=== PATIENT | male | born 1965 | race Two or more races ===

== ENCOUNTER 2024-10-11 18:20 | Emergency (ER) | payer BC, SELFPAY ==
[2024-10-11 18:35] VITALS: PULSE 68; RESP 16; O2SAT 98
[2024-10-11 19:25] VITALS: BP 145/66; PULSE 62; RESP 18; TEMP 36.7; O2SAT 99; BMI 27.4
--- NOTE | 2024-10-11 19:28 | EKG_ITS ---
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
--- NOTE | 2024-10-11 19:28 | XR_ITS ---
Examination: PA chest single view TECHNIQUE: Upright PA chest single view Examination time: October 11, 2024 1835 hours Comparison October 02, 2022 INDICATIONS: Chest pain today FINDINGS: Normal heart size. No pneumonia or pulmonary edema. Bilateral old rib fractures IMPRESSION: No pneumonia or pulmonary edema
--- NOTE | 2024-10-11 19:30 | PD.EDRME ---
Rapid Medical Screening Exam RME Arrival date/time: 10/11/24 18:20 Chief Complaint: Abdominal Pain Time Seen by Provider: 10/11/24 19:04 Vital signs: Vital Signs Temperature 98.1 F 10/11/24 19:25 Pulse Rate 62 10/11/24 19:25 Respiratory Rate 18 10/11/24 19:25 Blood Pressure 145/66 H 10/11/24 19:25 Pulse Oximetry (%) 99 10/11/24 19:25 Oxygen Delivery Method Room Air 10/11/24 19:25 E Narrative: Nausea and vomiting that started today. Denies abdominal pain. Reports mild chest pain. Patient is on dialysis.
[2024-10-11] MEDS: ONDANSETRON ODT 4 MG TABRAP PO (19:48)
[2024-10-11 19:54] LABS: Basophils # (Auto) 0.1 Thou/mm3 (0.0-0.2); Basophils % (Auto) 1 % (0-2.5); Eosinophils % (Auto) 1 % (0-10); Hemoglobin 11.4 g/dL (13.5-16.0); Immature Granulocytes % (Auto) 0 % (0-0); Immature Granulocytes Auto 0.02 Thou/mm3 (0.00-0.00); Lymphocytes # (Auto) 0.9 Thou/mm3 (1.0-4.8); Lymphocytes % (Auto) 14 % (10-50); Mean Corpuscular HGB Conc 34.5 g/dl (31.0-37.0); Mean Corpuscular Hemoglobin 33.2 pg (25.0-35.0); Mean Corpuscular Volume 96 fL (80-100); Monocytes # (Auto) 0.3 Thou/mm3 (0.0-0.8); Monocytes % (Auto) 5 % (0-12); Neutrophils # (Auto) 5.3 Thou/mm3 (1.8-7.7); Neutrophils % (Auto) 80 % (37-80); Nucleated Red Blood Cell % 0 /100 WBC (0); Platelet Count 155 Thou/mm3 (140-440); RDW Standard Deviation 46.5 fL (35.1-43.9); Red Blood Count 3.43 Miln/mm3 (4.50-5.90); White Blood Count 6.7 Thou/mm3 (3.8-10.6)
[2024-10-11 20:11] LABS: B-Type Natriuretic Peptide 61 pg/mL (0-100)
[2024-10-11 20:26] LABS: Alanine Aminotransferase 36 U/L (10-49); Albumin, Serum 4.9 gm/dL (3.5-5.0); Albumin/Globulin Ratio 1.7 (1.2-2.2); Alkaline Phosphatase 137 U/L (46-116); Anion Gap 15 (7-16); Aspartate Amino Transferase 31 U/L (0-34); BUN/Creatinine Ratio 6 Ratio (12-20); Bilirubin,Total 0.4 mg/dL (0.3-1.2); Blood Urea Nitrogen 70 mg/dL (9-23); Calcium 10.4 mg/dL (8.3-10.6); Calcium (Corrected) 10.4 mg/dL (8.5-10.1); Carbon Dioxide 29.8 mMol/L (20.0-31.0); Chloride 94 mMol/L (98-107); Creatinine (Component) 11.2 mg/dL (0.6-1.3); Estimated Creatinine Clearance 6.1 mL/min (>60); Globulin 2.9 gm/dL (2.3-3.5); Glucose 208 mg/dL (74-106); Osmolality,Calculated 304 (275-295); Potassium 5.2 mMol/L (3.4-5.1); Sodium 139 mMol/L (136-145); Total Protein 7.8 gm/dL (5.7-8.2); Troponin I < 0.020 ng/mL (0.0-0.045); eGFR 5 See Note
[2024-10-11 20:52] LABS: Lipase 73 U/L (12-53)
--- NOTE | 2024-10-11 21:43 | XR_ITS ---
Examination: Abdomen AP single view Technique: AP portable supine abdomen, single view Exam date and time: October 11, 2024 at 2045 hours INDICATION: Nausea vomiting today. FINDINGS: Moderate to large amounts of stool throughout the colon especially rectosigmoid Small bowel ileus No free air Prominent osteopenia Moderate narrowing hip joints IMPRESSION: Mild small bowel ileus
[2024-10-11] MEDS: metroNIDAZOLE 250 MG TABLET PO (23:11)
[2024-10-11 23:17] VITALS: RESP 18
--- NOTE | 2024-10-11 23:53 | PD.EDABDPN ---
ED Abdominal Pain RME/HPI General Chief Complaint: Abdominal Pain Stated complaint: NAUSEA, VOMITING Time seen by provider: 10/11/24 19:04 Arrival date/time: 10/11/24 18:20 RME / HPI RME / HPI narrative: Nausea and vomiting that started today. Denies abdominal pain. Reports mild chest pain. Patient is on dialysis. This section includes all my notes and documentations, including HPI, PE, and ED course. Dwayne Roy MD HPI: 58-year-old male here with about 24-hour history of nausea and vomiting. No hematemesis or coffee-ground emesis. No abdominal pain. No rectal bleeding or tarry stools. No other complaints. ROS: All negative except as documented in HPI. Physical Exam: General: Alert and oriented. No acute distress when remaining still. Eyes: Conjunctivae and lids clear. ENT: No nasal congestion. Neck: Supple. Heart: RRR. Lungs: No respiratory distress. Good air movement. No rhonchi, wheezing, rales. Abdomen: Soft and nontender. Normal bowel sounds. No distension. No rebound or guarding. Back: No CVA tenderness. Skin: Warm and dry. Neuro: Alert and oriented X 3. I reviewed all diagnostic test results. My interpretation of the EKG is sinus rhythm with no acute ST?T changes. My interpretation of the chest x-ray is no acute findings. My interpretation of the KUB is no acute findings. Blood tests unremarkable, except ESRD. At this point, diagnoses include gastroenteritis. Recommended supportive care. Based on my best medical judgment, made decision no further evaluation or treatment indicated at this time. Patient understands and agrees to the discharge instructions customized and printed, see below. Discharge Instructions from Dr. Roy: 1. After evaluation, you have stomach flu.? See attached handout on gastroenteritis. 2. Take Cipro for the infection. 3. Your job is to stay hydrated.? Zofran for nausea/vomiting.? Increase oral fluid and maintain clear urine.? If dark or yellow, increase oral fluid. 4. Do not take any medications to stop your diarrhea if you develop diarrhea.? But try to replenish the fluid and electrolytes you are losing. 5. Some good choices are water (but not only water because it will cause electrolyte abnormalities), sports drinks like Gatorade (with less sugar content), coconut water, chicken stock, and other fluid with electrolytes (like Pedialyte). 6. See your private doctor on 10/15/2024 if not completely better. 7. Seek immediate medical care with worsening or with any concerns. Instrucciones de liliam del Dr. Roy: 1. Despu?s de la evaluaci?n, tiene gastroenteritis. Consulte el folleto adjunto sobre gastroenteritis. 2. [place] Cipro para la infecci?n. 3. Burks deber es mantenerse hidratado. Zofran para las n?useas y los v?mitos. Aumente la ingesta de l?quidos y mantenga la orina roberth. Si la orina es oscura o amarilla, aumente la ingesta de l?quidos. 4. No tome maxi?n medicamento para detener la diarrea si la desarrolla. Intente reponer los l?quidos y electrolitos que est? perdiendo. 5. Algunas buenas opciones son el agua (ovidio no solo agua, ya que puede causar anomal?as electrol?ren), las bebidas deportivas dontae Gatorade (con menos contenido de az?car), el agua de key, el caldo de gisele y otros l?quidos con electrolitos (dontae Pedialyte). 6. Consulte a burks m?dico el 15/10/2024 si no mejora por completo. 7. Busque atenci?n m?dica inmediata si la diarrea empeora o tiene alguna inquietud. Dwayne Roy MD Related Data Previous Rx's ?Medication ?Instructions ?Recorded ciprofloxacin HCl 250 mg tablet 250 mg PO BID #6 tabs 10/11/24 (Cipro) ondansetron 4 mg disintegrating 4 mg PO TID PRN nausea and 10/11/24 tablet vomiting 30 days #10 tabs Allergies Allergy/AdvReac Type Severity Reaction Status Date / Time codeine Allergy Verified 10/02/22 02:50 Course Quality Measures none Orders Category Date Time Status Bedside COVID-19 Antigen Test NOW Care 10/11/24 19:28 Completed Bedside Influenza A&B Antigen Test NOW Care 10/11/24 19:29 Completed EKG (ED ONLY) *Do not use* NOW Care 10/11/24 19:29 Completed CXR [XR chest 1V] Stat Exams 10/11/24 19:28 Completed EKG (ED Only) Stat Exams 10/11/24 19:28 Draft KUB [XR abdomen 1V] Stat Exams 10/11/24 21:43 Completed BNP [B-Type Natriuretic Peptide] Stat Lab 10/11/24 19:45 Completed CBC Stat Lab 10/11/24 19:45 Completed CMP [Comprehensive Metabolic Panel] Stat Lab 10/11/24 19:45 Completed Lipase Stat Lab 10/11/24 19:45 Completed Troponin I Stat Lab 10/11/24 19:45 Completed Ondansetron Odt [Zofran Odt] Med 10/11/24 19:31 Discontinued 4 mg PO X1 ONE metroNIDAZOLE [Flagyl] Med 10/11/24 23:03 Discontinued 250 mg PO X1 ONE Vital Signs Vital signs: Vital Signs Temperature 98.1 F 10/11/24 19:25 Pulse Rate 62 10/11/24 19:25 Respiratory Rate 18 10/11/24 19:25 Blood Pressure 145/66 H 10/11/24 19:25 Pulse Oximetry (%) 99 10/11/24 19:25 Oxygen Delivery Method Room Air 10/11/24 19:25 Abdominal Pain [facility] Patient data External records reviewed:: [facility] previous records Clinical information provided by:: patient Social determinants that could affect healthcare access:: none Patient has the following chronic illnesses:: ESRD How is presenting disease/condition affected by chronic disease/condition?: uneffected by Evaluation data The following diagnostics were reviewed and interpreted by me:: lab results, radiology exam(s) and EKG tracing(s) Lab and/or radiology exams considered but not ordered:: No acute findings. Interpretation Summary: Normal diagnostics. Medications / Prescriptions Medications or Prescriptions considered but not ordered:: None Medication administrations:: Medication Administration History Discontinued Medications Metronidazole (Metronidazole 250 Mg Tablet) 250 mg PO X1 ONE Stop: 10/11/24 23:04 Last Admin: 10/11/24 23:11 Dose: 250 mg Documented By: CVL Ondansetron HCl (Ondansetron Odt 4 Mg Tabrap) 4 mg PO X1 ONE; Protocol Stop: 10/11/24 19:32 Last Admin: 10/11/24 19:48 Dose: 4 mg Documented By: ANTOINE Spence and Yaneth Consultations Consultation(s) initiated? (list below): No Diagnosis Differential diagnosis abdominal pain: constipation, gastroenteritis and small bowel obstruction Most likely diagnosis given after review of the tests above:: Gastroenteritis Admission Indicated Admission indicated?: not indicated Explain why admission is indicated or not indicated:: There was no indication for admission. Admission Request Was there a request for admission?: No Disposition Plan Disposition Plan: Discharge Discharge Attestation Discharge Attestation: The patient and all family members were given an opportunity to ask questions and understood the discharge instructions. Discharge instructions specifically effects, indications for sooner follow up or return to the emergency department, and the expected course of current diagnosis. Patient condition: Stable Discharge Plan Plan Patient Disposition: HOME (Self Care) Prescriptions/Referrals Prescriptions/Med Rec: New ondansetron 4 mg tablet,disintegrating 4 mg PO TID PRN (Reason: nausea and vomiting) 30 Days Qty: 10 0RF ciprofloxacin HCl [Cipro] 250 mg tablet 250 mg PO BID Qty: 6 0RF Referrals: No Primary/Family,Physician [Primary Care Provider] - In 1 week Problem List Clinical Impression: Infection of stomach Patient/Caregiver Discharge Instructions Discharge Activity: activity as tolerated Education Materials: ED Gastroenteritis, Bacterial (Adult) Additional Instructions: Discharge Instructions from Dr. Roy: 1. After evaluation, you have stomach flu.? See attached handout on gastroenteritis. 2. Take Cipro for the infection. 3. Your job is to stay hydrated.? Zofran for nausea/vomiting.? Increase oral fluid and maintain clear urine.? If dark or yellow, increase oral fluid. 4. Do not take any medications to stop your diarrhea if you develop diarrhea.? But try to replenish the fluid and electrolytes you are losing. 5. Some good choices are water (but not only water because it will cause electrolyte abnormalities), sports drinks like Gatorade (with less sugar content), coconut water, chicken stock, and other fluid with electrolytes (like Pedialyte). 6. See your private doctor on 10/15/2024 if not completely better. 7. Seek immediate medical care with worsening or with any concerns. Instrucciones de liliam del Dr. Roy: 1. Despu?s de la evaluaci?n, tiene gastroenteritis. Consulte el folleto adjunto sobre gastroenteritis. 2. [place] Cipro para la infecci?n. 3. Burks deber es mantenerse hidratado. Zofran para las n?useas y los v?mitos. Aumente la ingesta de l?quidos y mantenga la orina roberth. Si la orina es oscura o amarilla, aumente la ingesta de l?quidos. 4. No tome maxi?n medicamento para detener la diarrea si la desarrolla. Intente reponer los l?quidos y electrolitos que est? perdiendo. 5. Algunas buenas opciones son el agua (ovidio no solo agua, ya que puede causar anomal?as electrol?ren), las bebidas deportivas dontae Gatorade (con menos contenido de az?car), el agua de key, el caldo de gisele y otros l?quidos con electrolitos (dontae Pedialyte). 6. Consulte a burks m?dico el 15/10/2024 si no mejora por completo. 7. Busque atenci?n m?dica inmediata si la diarrea empeora o tiene alguna inquietud. Print Language: Malaysian Stand Alone Forms: Kirsten Award Info., Patient Portal Info Letter
== END 2024-10-11 23:18 | disposition home or self-care (01) ==
PROVIDERS: Physician Assistant; Emergency Provider Emergency Medicine
DX: A09 Infectious gastroenteritis and colitis, unspecified (principal); R07.9 Chest pain, unspecified
CPT/HCPCS: 36415; 71045; 74018; 80053; 83690; 83880; 84484; 85025; 87400; 87811; 93005; 99283; Q0162; A9270